=== PATIENT | female | born 1955 | race American Indian/Alaskan Native ===

== ENCOUNTER 2017-08-13 06:46 | Emergency (ER) | payer MEDICARE ==
[2017-08-13 06:56] VITALS: RESP 18; TEMP 98.1; O2SAT 99
--- NOTE | 2017-08-13 07:17 | ED PDOC ---
Arrival/HPI - General Chief Complaint: Female Genitourinary Time Seen by Provider: 08/13/17 07:09 Historian: Patient - History of Present Illness Narrative History of Present Illness (Text): 08/13/17 07:14 62 year old female, with no significant past medical history, who presents to the emergency department complaining of an itchy vaginal area for a couple of days. Patient denies any vaginal pain, fever, chills, chest pain, shortness of breath, nausea, vomiting, diarrhea, urinary symptoms, back pain, neck pain, headache, dizziness, or any other complaints. Time/Duration: < week Symptom Onset: Gradual Symptom Course: Unchanged Activities at Onset: Light Context: Home Past Medical History - Provider Review Nursing Documentation Reviewed: Yes - Infectious Disease Hx of Infectious Diseases: None - Musculoskeletal/Rheumatological Other/Comment: rt shoulder sx - Psychiatric Hx Substance Use: No - Surgical History Other/Comment: rt shoulder sx - Anesthesia Hx Anesthesia: Yes Hx Anesthesia Reactions: No Hx Malignant Hyperthermia: No - Suicidal Assessment Feels Threatened In Home Enviroment: No Family/Social History - Physician Review Nursing Documentation Reviewed: Yes Family/Social History: Unknown Family HX Smoking Status: Never Smoked Hx Alcohol Use: No Hx Substance Use: No Allergies/Home Meds Allergies/Adverse Reactions: Allergies No Known Allergies Allergy (Verified 05/28/13 17:18) Home Medications: Home Meds Medication Instructions Recorded Confirmed Atorvastatin Calcium [Atorvastatin 10 mg PO HS 08/13/17 08/13/17 Calcium] Review of Systems - Physician Review All systems were reviewed & negative as marked: Yes - Review of Systems Constitutional: Normal Eyes: Normal ENT: Normal Respiratory: Normal. absent: SOB, Cough Cardiovascular: Normal. absent: Chest Pain Gastrointestinal: Normal. absent: Abdominal Pain, Diarrhea, Nausea, Vomiting Genitourinary Female: Other (vaginal area itchiness). absent: Dysuria, Frequency Musculoskeletal: Normal. absent: Back Pain, Neck Pain Skin: Normal. absent: Rash Neurological: Normal. absent: Headache, Dizziness Endocrine: Normal Hemo/Lymphatic: Normal Psychiatric: Normal Physical Exam Vital Signs Reviewed: Yes Vital Signs Temp Pulse Resp BP Pulse Ox 08/13/17 07:39 88 18 165/89 H 99 08/13/17 06:55 98.1 F 72 18 176/92 H 99 Temperature: Afebrile Blood Pressure: Normal Pulse: Regular Respiratory Rate: Normal Appearance: Positive for: Well-Appearing, Non-Toxic, Comfortable Pain Distress: None Mental Status: Positive for: Alert and Oriented X 3 - Systems Exam Head: Present: Atraumatic, Normocephalic Pupils: Present: PERRL Extroacular Muscles: Present: EOMI Conjunctiva: Present: Normal Mouth: Present: Moist Mucous Membranes Neck: Present: Normal Range of Motion. No: Meningeal Signs, MIDLINE TENDERNESS , Paraspinal Tenderness Respiratory/Chest: Present: Clear to Auscultation, Good Air Exchange. No: Respiratory Distress, Accessory Muscle Use Cardiovascular: Present: Regular Rate and Rhythm, Normal S1, S2. No: Murmurs Abdomen: No: Tenderness, Distention, Peritoneal Signs Back: Present: Normal Inspection. No: CVA Tenderness, Midline Tenderness, Paraspinal Tenderness Upper Extremity: Present: Normal Inspection. No: Cyanosis, Edema Lower Extremity: Present: Normal Inspection. No: Edema Neurological: Present: GCS=15, CN II-XII Intact, Speech Normal Skin: Present: Warm, Dry, Normal Color. No: Rashes Psychiatric: Present: Alert, Oriented x 3, Normal Insight, Normal Concentration Medical Decision Making ED Course and Treatment: 08/13/17 07:20 Impression: 62 year old female presents to the emergency department complaining of an itchy vaginal area. Plan: -- Reassess and disposition Prior Visits: Notes and results from previous visits were reviewed. Patient was last seen in the emergency department on Progress Notes: Pt refusing vaginal exam. Requests for medications only. 08/13/17 08:09 refuses exam. specificaly requesting diflucan and dc home states feels like previous yeast infection. - Scribe Statement The provider has reviewed the documentation as recorded by the Scribe Bonnie Mccloud All medical record entries made by the Scribe were at my direction and personally dictated by me. I have reviewed the chart and agree that the record accurately reflects my personal performance of the history, physical exam, medical decision making, and the department course for this patient. I have also personally directed, reviewed, and agree with the discharge instructions and disposition. Disposition/Present on Arrival - Present on Arrival Any Indicators Present on Arrival: No History of DVT/PE: No History of Uncontrolled Diabetes: No Urinary Catheter: No History of Decub. Ulcer: No History Surgical Site Infection Following: None - Disposition Have Diagnosis and Disposition been Completed?: Yes Diagnosis: Vaginal discharge Disposition: HOME/ ROUTINE Disposition Time: 08:00 Condition: STABLE Discharge Instructions (ExitCare): Vulvovaginal Yeast Infection, Vaginal Discharge in Adults, Vaginitis Additional Instructions: you are declining a pelvic exam. you should follow up with your doctor and specialist. Prescriptions: Fluconazole [Diflucan] 150 mg PO DAILY #2 tab Referrals: Malorie Grande MD [Staff Provider] - Follow up with primary Forms: [id number] (Tajik)
[2017-08-13 07:40] VITALS: BP 165/89; PULSE 88
== END 2017-08-13 07:30 | disposition home or self-care (01) ==
LOC: ED 06:46
DX: N89.8 Other specified noninflammatory disorders of vagina (principal)